=== PATIENT | male | born 1990 | race American Indian/Alaskan Native ===

== ENCOUNTER 2018-01-30 03:52 | Emergency (ER) | payer SELFPAY ==
[2018-01-30 04:08] VITALS: BP 147/86
[2018-01-30] MEDS ORDERED: MAGIC MOUTHWASH PO ONE (05:19)
[2018-01-30] MEDS ORDERED: ZITHROMAX PO ONE (05:19)
[2018-01-30] MEDS ORDERED: ROCEPHIN IM ONE (05:22)
[2018-01-30] MEDS ORDERED: XYLOCAINE 1% MPF 5 mL INFILTRATI ONE (05:22)
--- NOTE | 2018-01-30 05:40 | Emergency Department Report ---
ED General Adult HPI - General Chief complaint: Dental/Oral Stated complaint: CHEST PAIN/MOUTH PAIN Time Seen by Provider: 01/30/18 05:29 Source: patient Mode of arrival: Ambulatory Limitations: No Limitations - History of Present Illness Initial comments: Patient is a 27-year-old male states history of oral canker sores states clarify one week ago patient states he is not and last sexual contact 1 month ago last STI treatment over 2 years ago symptoms now multiple canker sores internal and external irregular shaped yellow-pink centers painful to touch mucopurulent drainage patient states dysphagia as lesions R and throat no fever no chills no nausea vomiting does endorse malaise patient states he is not HIV positive has not had concern HSV plan we'll obtain HSV gonorrhea Chlamydia cultures orally treatment for STI Magic mouthwash CBC CMP there is no gum swelling no facial swelling exception of lips patient is not Efrain inhibitors or other medications Onset/Timin -: week(s) Location: mouth Severity scale (0 -10): 5 Quality: burning, sharp Consistency: constant Improves with: none Worsens with: eating, movement Associated Symptoms: nausea/vomiting. denies: confusion, chest pain, cough, diaphoresis, fever/chills, headaches, loss of appetite, malaise, rash, seizure, shortness of breath, syncope, weakness Treatments Prior to Arrival: none - Related Data Previous Rx's Medication Instructions Recorded Last Taken Type Acyclovir [Zovirax] 400 mg PO TID 10 Days #30 tablet 01/30/18 Unknown Rx Doxycycline [Vibramycin CAP] 100 mg PO BID 10 Days #20 capsule 01/30/18 Unknown Rx Nystas/Diphen/Xyl Visc/Mylanta 480 ml MM Q4H PRN #1 bottle 01/30/18 Unknown Rx [Magic Mouthwash] Allergies Allergy/AdvReac Type Severity Reaction Status Date / Time No Known Allergies Allergy Unverified 01/30/18 04:11 ED Review of Systems ROS: Stated complaint: CHEST PAIN/MOUTH PAIN Other details as noted in HPI Constitutional: malaise Eyes: denies: eye pain, eye discharge, vision change ENT: throat pain, other (oral ulcers ) Respiratory: denies: cough, shortness of breath, wheezing Cardiovascular: denies: chest pain, palpitations Endocrine: no symptoms reported Gastrointestinal: denies: abdominal pain, nausea, diarrhea Genitourinary: denies: urgency, dysuria Musculoskeletal: denies: back pain, joint swelling, arthralgia Skin: lesions (oral as above ) Neurological: denies: headache, weakness, paresthesias Psychiatric: denies: anxiety, depression Hematological/Lymphatic: denies: easy bleeding, easy bruising ED Past Medical Hx - Past Medical History Previous Medical History?: No - Surgical History Past Surgical History?: Yes Additional Surgical History: leg SX - Social History Smoking Status: Current Every Day Smoker Substance Use Type: None - Medications Home Medications: Home Medications Medication Instructions Recorded Confirmed Last Taken Type Acyclovir [Zovirax] 400 mg PO TID 10 Days #30 tablet 01/30/18 Unknown Rx Doxycycline [Vibramycin CAP] 100 mg PO BID 10 Days #20 capsule 01/30/18 Unknown Rx Nystas/Diphen/Xyl Visc/Mylanta 480 ml MM Q4H PRN #1 bottle 01/30/18 Unknown Rx [Magic Mouthwash] ED Physical Exam - General Limitations: No Limitations General appearance: alert, in no apparent distress - Head Head exam: Present: atraumatic, normocephalic - Eye Eye exam: Present: normal appearance, PERRL, EOMI, scleral icterus Pupils: Present: normal accommodation - ENT ENT exam: Present: mucous membranes moist, TM's normal bilaterally, normal external ear exam - Expanded ENT Exam Expanded Mouth exam: Absent: trismus, muffled voice, other Teeth exam: Present: dental caries, dental tenderness # Throat exam: Positive: tonsillar erythema, tonsillomegaly, tonsillar exudate. Negative: R peritonsillar mass, L peritonsillar mass - Neck Neck exam: Present: normal inspection, full ROM. Absent: meningismus, lymphadenopathy, thyromegaly - Respiratory Respiratory exam: Present: normal lung sounds bilaterally. Absent: respiratory distress, wheezes, stridor, chest wall tenderness - Cardiovascular Cardiovascular Exam: Present: regular rate, normal rhythm, normal heart sounds. Absent: systolic murmur, diastolic murmur, rubs, gallop - GI/Abdominal GI/Abdominal exam: Present: soft, normal bowel sounds. Absent: distended, tenderness, guarding, rebound, rigid, organomegaly, mass, bruit, pulsatile mass , hernia - Rectal Rectal exam: Present: deferred - Extremities Exam Extremities exam: Present: normal inspection, full ROM, normal capillary refill , calf tenderness. Absent: tenderness - Back Exam Back exam: Present: normal inspection, full ROM. Absent: tenderness - Neurological Exam Neurological exam: Present: alert, oriented X3, CN II-XII intact, normal gait, reflexes normal - Psychiatric Psychiatric exam: Present: normal affect, normal mood - Skin Skin exam: Present: warm, dry, intact, normal color. Absent: rash ED Course Vital Signs 01/30/18 03:57 Temperature 99.5 F Pulse Rate 93 H Respiratory 20 Rate Blood Pressure 147/86 O2 Sat by Pulse 97 Oximetry ED Medical Decision Making - Lab Data Result diagrams: 01/30/18 05:30 01/30/18 05:30 - Medical Decision Making symptoms much improved per patient, pt is tolerating po intake , plan: doxycycline , Majic mouth wash, will rx acyclovir 400 mg po 5 x a day , pt will follow up with [facility] in 2-3 days, will return to ed if symptoms worsen. pt verbalized agreement and understanding of same. Critical care attestation.: If time is entered above; I have spent that time in minutes in the direct care of this critically ill patient, excluding procedure time. ED Disposition Clinical Impression: [place], Exposure to STD Disposition: DC-01 TO HOME OR SELFCARE Is pt being admited?: No Does the pt Need Aspirin: No Condition: Good Instructions: Sexually Transmitted Diseases (ED), Safe Sex (ED) Prescriptions: Acyclovir [Zovirax] 400 mg PO TID 10 Days #30 tablet Doxycycline [Vibramycin CAP] 100 mg PO BID 10 Days #20 capsule Nystas/Diphen/Xyl Visc/Mylanta [Magic Mouthwash] 480 ml MM Q4H PRN #1 bottle PRN Reason: oral pain lesions Referrals: [facility] [Outside] - 3-5 Days Forms: Work/School Release Form(ED) Time of Disposition: 07:05
[2018-01-30 05:48] LABS: Basophils % (Auto) 0.3 % (0.0-1.8); Eosinophils # (Auto) 0.1 K/mm3 (0.0-0.4); Eosinophils % (Auto) 1.8 % (0.0-4.3); Hematocrit 47.1 % (35.5-45.6); Hemoglobin 16.3 gm/dl (11.8-15.2); Lymphocytes # (Auto) 0.9 K/mm3 (1.2-5.4); Mean Corpuscular HGB Conc 35 % (32-34); Mean Corpuscular Hemoglobin 30 pg (28-32); Mean Corpuscular Volume 88 fl (84-94); Monocytes # (Auto) 0.7 K/mm3 (0.0-0.8); Monocytes % (Auto) 10.6 % (0.0-7.3); Platelet Count 224 K/mm3 (140-440); Red Blood Count 5.36 M/mm3 (3.65-5.03); Red Cell Distribution Width 13.2 % (13.2-15.2)
[2018-01-30 05:59] LABS: Alanine Aminotransferase 19 units/L (7-56); Albumin 4.4 g/dL (3.9-5); BUN/Creatinine Ratio 18; Blood Urea Nitrogen 14 mg/dL (9-20); Calcium 9.7 mg/dL (8.4-10.2); Hemolysis Index 1
== END 2018-01-30 07:10 | disposition home or self-care (01) ==
LOC: ED 03:52
DX: A51.0 Primary genital syphilis (principal); F17.200 Nicotine dependence, unspecified, uncomplicated; Z20.2 Contact with and (suspected) exposure to infections with a predominantly sexual mode of transmission
CPT/HCPCS: 36415; 80053; 85025; 87529; 87591; 93005; 93010; 96372; 99283; J0696